=== PATIENT | male | born 1965 | race Caucasian/White ===

== ENCOUNTER 2016-07-05 21:44 | Emergency (ER) | payer OTHER ==
[~2016-07-05] VITALS: Ht 162.6 cm; Wt 77.0 kg
[2016-07-05] MEDS ORDERED: NAPROSYN500 MG PO (22:52)
[2016-07-05 23:00] VITALS: BP 137/94
== END 2016-07-05 23:12 | disposition home or self-care (01) | DRG 605 ==
LOC: ED 21:44
DX: S50.12XA Contusion of left forearm, initial encounter (principal); Y08.02XA Assault by strike by baseball bat, initial encounter

== ENCOUNTER 2016-07-31 12:59 | Emergency (ER) | payer OTHER ==
[~2016-07-31] VITALS: Ht 162.6 cm; Wt 72.0 kg
[~2016-07-31 12:59] MED LIST: NAPROSYN500 MG PO
[2016-07-31] MEDS ORDERED: LAMISIL AT ATHLET1 % TOP (14:16)
[2016-07-31] MEDS ORDERED: LORTAB 10-325 M1 TAB PO ×2 (14:16→14:17)
[2016-07-31 14:40] VITALS: BP 131/86
== END 2016-07-31 14:40 | disposition home or self-care (01) | DRG 554 ==
LOC: ED 12:59
DX: M19.071 Primary osteoarthritis, right ankle and foot (principal); M79.671 Pain in right foot

== ENCOUNTER 2016-11-04 18:35 | Emergency (ER) | payer OTHER ==
[~2016-11-04] VITALS: Ht 162.6 cm; Wt 73.0 kg
[~2016-11-04 18:35] MED LIST changes: +LAMISIL AT ATHLET1 % TOP; +LORTAB 10-325 M1 TAB PO
[2016-11-04] MEDS ORDERED: GABAPENTIN100 MG PO (18:57)
[2016-11-04] MEDS ORDERED: MOTRIN200 MG PO (18:57)
[2016-11-04] MEDS ORDERED: METHOCARBAM500 MG PO (18:58)
[2016-11-04] MEDS ORDERED: NAPROSYN500 MG PO (20:29)
[2016-11-04 20:50] VITALS: BP 124/80
== END 2016-11-04 20:50 | disposition home or self-care (01) | DRG 552 ==
LOC: ED 18:35
DX: S13.9XXA Sprain of joints and ligaments of unspecified parts of neck, initial encounter (principal); I10 Essential (primary) hypertension; S63.502A Unspecified sprain of left wrist, initial encounter; S43.402A Unspecified sprain of left shoulder joint, initial encounter; S10.91XA Abrasion of unspecified part of neck, initial encounter; F17.210 Nicotine dependence, cigarettes, uncomplicated; Y04.0XXA Assault by unarmed brawl or fight, initial encounter

== ENCOUNTER 2016-11-12 12:14 | Emergency (ER) | payer OTHER ==
[~2016-11-12] VITALS: Ht 162.6 cm; Wt 80.0 kg
[~2016-11-12 12:14] MED LIST changes: +GABAPENTIN100 MG PO; +METHOCARBAM500 MG PO; +MOTRIN200 MG PO
[2016-11-12] MEDS ORDERED: NORCO1 TA1 PO (14:24)
[2016-11-12 14:27] VITALS: BP 141/84
== END 2016-11-12 14:35 | disposition home or self-care (01) | DRG 93 ==
LOC: ED 12:14
DX: G89.29 Other chronic pain (principal); G62.9 Polyneuropathy, unspecified; M54.9 Dorsalgia, unspecified; F17.210 Nicotine dependence, cigarettes, uncomplicated

== ENCOUNTER 2017-01-10 08:35 | Emergency (ER) | payer OTHER ==
[~2017-01-10] VITALS: Ht 162.6 cm; Wt 70.0 kg
[~2017-01-10 08:35] MED LIST changes: +NORCO1 TA1 PO
[2017-01-10] MEDS ORDERED: MELOXICAM7.5 MG PO (10:02)
[2017-01-10 10:05] VITALS: BP 149/89
== END 2017-01-10 10:05 | disposition home or self-care (01) | DRG 558 ==
LOC: ED 08:35
DX: M75.22 Bicipital tendinitis, left shoulder (principal); G62.9 Polyneuropathy, unspecified; F17.210 Nicotine dependence, cigarettes, uncomplicated; G89.29 Other chronic pain